=== PATIENT | female | born 1975 | race Caucasian/White ===

== ENCOUNTER 2018-04-22 20:00 | Emergency (ER) | payer SELFPAY ==
[~2018-04-22] VITALS: Ht 162.6 cm; Wt 83.9 kg
[2018-04-22 20:35] VITALS: BP_SYST 147
--- NOTE | 2018-04-22 22:11 | NUR ---
Patient to ER bed 04 to gown for evaluation. Side rails up.
[2018-04-22] MEDS ORDERED: NACL 0.9% 1,000 ML IV ONE (22:38)
--- NOTE | 2018-04-22 22:43 | NUR ---
Pt AAOx4 ambulated into ED c/o abdominal pain, low back pain, and bright red rectal bleeding since this afternoon. Pt denies taking medication, pt only has home med of albuterol inhaler. Skin pink dry and warm, breathing even and unlabored. No other injuries/complaints per pt/noted. Will continue to monitor.
[2018-04-22] MEDS ORDERED: ONDANSETRON HCL 4 MG/2 ML VIAL IVP ONE (22:45)
[2018-04-22] MEDS ORDERED: MORPHINE 4 MG/ML INJ. SYRINGE IVP ONE (22:45)
[2018-04-22 23:00] LABS: BASOPHILS # (AUTO) 0.1 K/uL (0.0-0.2); BASOPHILS % (AUTO) 0.8 % (0.0-2.0); EOSINOPHILS # (AUTO) 0.8 K/uL (0.0-0.4); EOSINOPHILS % (AUTO) 9.4 % (0.0-4.0); HEMATOCRIT 33.3 % (36-48); HEMOGLOBIN 10.4 g/dL (12.0-16.0); LYMPHOCYTES # (AUTO) 2.8 K/uL (1.0-5.5); LYMPHOCYTES % (AUTO) 31.6 % (20.5-51.5); MEAN CORPUSCULAR HEMOGLOBIN 26 pg (27-31); MEAN CORPUSCULAR HGB CONC 31 % (32-36); MEAN CORPUSCULAR VOLUME 83 fL (79.0-98.0); MONOCYTES # (AUTO) 0.7 K/uL (0.0-1.0); MONOCYTES % (AUTO) 7.7 % (1.7-9.3); NEUTROPHILS # (AUTO) 4.5 K/uL (1.8-7.7); NEUTROPHILS % (AUTO) 50.5 % (40.0-70.0); PLATELET COUNT (AUTO) 389 K/uL (130-430); RED BLOOD CELL COUNT(AUTO) 4.03 MIL/uL (4.2-6.2); RED CELL DISTRIBUTION WIDTH 14.4 % (9.0-15.0); WHITE BLOOD COUNT (AUTO) 8.9 K/uL (4.8-10.8)
--- NOTE | 2018-04-22 23:00 | NUR ---
ER Dr. Bryant at bedside examining patient.
[2018-04-22 23:14] LABS: CALCIUM 8.8 mg/dL (8.4-11.0); CREATININE 0.72 mg/dL (0.55-1.30); POTASSIUM 3.4 mmol/L (3.5-5.1)
--- NOTE | 2018-04-22 23:14 | NUR ---
Pt taken to radiology via gurney in stable condition
[2018-04-22 23:20] LABS: ALBUMIN 3.3 g/dL (3.4-4.8); TOTAL BILIRUBIN 0.2 mg/dL (0.0-1.0)
[2018-04-23 00:05] VITALS: BP_SYST 138
--- NOTE | 2018-04-23 00:05 | NUR ---
Patient given written and verbal discharge instructions and verbalizes understanding. ER MD Bryant discussed with patient the results and treatment provided. Patient in stable condition. ID arm band removed. No Rx given. Patient educated on pain management and to follow up with PMD. Pain Scale 0. Opportunity for questions provided and answered. Medication side effect fact sheet provided.
== END 2018-04-23 00:05 | disposition home or self-care (01) ==
LOC: SED 20:00
DX: K60.2 Anal fissure, unspecified (principal); D25.9 Leiomyoma of uterus, unspecified
CPT/HCPCS: 36415; 74176; 80053; 81025; 83690; 85025; 96361; 96374; 96375; 99285; J2270; J2405; J7030